=== PATIENT | female | born 1930 | race Caucasian/White ===

== ENCOUNTER 2016-12-01 20:45 | Inpatient (IN) | payer MEDICARE, BC ==
[~2016-12-01] VITALS: Ht 152.4 cm; Wt 61.5 kg
[~2016-12-01 20:45] MED LIST: CARV12.52 PO; ENAL2.5T PO; FERR65TA PO; FURO20TA PO; GABA300C5 PO; LIPI10TA PO; PANT40TA3 PO
[2016-12-01 20:56] VITALS: BP 194/91; PULSE 104; RESP 40; TEMP 98.3; O2SAT 89
[2016-12-01 21:12] VITALS: RESP 16; O2SAT 98
--- NOTE | 2016-12-01 21:13 | PD ---
HPI Chief Complaint: Respiratory Symptoms Time Seen by Provider: 21:10 Travel History International Travel<30 days: No Contact w/Intl Traveler<30days: No Traveled to known affect area: No History of Present Illness HPI 86-year-old elderly female presents to the emergency department her daughter for evaluation of worsening weakness over the past 4 days. Patient states that over the past 4 days, she has had decreased appetite, worsening weakness, vomiting. She also reports cough and congestion. She states is been ongoing for approximately 2 months. She has been on 2 Z-Paks and is on nebulizers. Her daughter states that she has been diagnosed with COPD. The patient denies any fevers or chills. No abdominal pain. She denies any diarrhea. She states that she has not had a bowel movement in 3-4 days. Patient denies any blood in her stool or black and tarry stools. Patient states she is only urinating twice a day and is concerned of dehydration. PFSH Past Medical History Arthritis: No Blood Disorders: No Anxiety: No Depression: No Heart Rhythm Problems: No Cancer: No Cardiovascular Problems: Yes (HTN) High Cholesterol: Yes Chemotherapy: No Congestive Heart Failure: Yes (DIAGNOSED ON LAST ADMISSION) Cerebrovascular Accident: Yes (x3) Diabetes: No Diminished Hearing: No Endocrine: No Gastrointestinal Disorders: No Genitourinary: Yes Headaches: No Hypertension: Yes Immune Disorder: No Implanted Vascular Access Dvce: No Kidney Stones: Yes (LAST ADMISSION 2 STONES NOTED) Musculoskeletal: Yes (RIGHT HIP FRX REPAIR- PLATE IN PLACE) Neurologic: Yes Psychiatric: No Reproductive: No Respiratory: Yes (COPD) Immunizations Current: No Migraines: No Radiation Therapy: No Seizures: No Thyroid Disease: Yes Menopausal: Yes : 4 Para: 4 Past Surgical History Abdominal Surgery: No Cardiac Surgery: No Ear Surgery: No Endocrine Surgery: Yes (PARATHYROID REMOVED) Eye Surgery: Yes (cataracts) Genitourinary Surgery: No Gynecologic Surgery: No Neurologic Surgery: No Oral Surgery: No Pacemaker: No Thoracic Surgery: No Other Surgery: Yes (CAROTIDECTOMY - POLYPS REMOVED) Social History Alcohol Use: No Tobacco Use: Yes (quit 10 yrs ago, but will still have one) Substance Use: No Allergies-Medications (Allergen,Severity, Reaction): Coded Allergies: Penicillin (Unverified Allergy, Mild, Rash, 12/01/16) STATES HAD PCN WHEN SHE WAS IN HER 20'S OR 30'S AND HAD A BLOTCHY RASH Reported Meds & Prescriptions Reported Meds & Active Scripts Active Reported Furosemide 20 Mg Tab 20 Mg PO DAILY Carvedilol 12.5 Mg Tab 12.5 Mg PO DAILY Pantoprazole (Pantoprazole Sodium) 40 Mg Tab 40 Mg PO BID Feosol (Ferrous Sulfate) 65 Mg Tab 65 Mg PO BIDPC Enalapril (Enalapril Maleate) 2.5 Mg Tab 5 Mg PO BID Lipitor (Atorvastatin Calcium) 10 Mg Tab 80 Mg PO HS Gabapentin 300 Mg Cap 300 Mg PO TID Review of Systems Except as stated in HPI: all other systems reviewed are Neg Physical Exam Narrative GENERAL: Well-nourished, well-developed elderly female patient, afebrile. SKIN: Focused skin assessment warm/dry. HEAD: Normocephalic. Atraumatic. EYES: No scleral icterus. No injection or drainage. NECK: Supple, trachea midline. No JVD or lymphadenopathy. CARDIOVASCULAR: Regular rate and rhythm without murmurs, gallops, or rubs. Bilateral radial and pedal pulses 2+. RESPIRATORY: Breath sounds equal bilaterally. No accessory muscle use. Lungs sounds with inspiratory and expiratory wheezes noted throughout. GASTROINTESTINAL: Abdomen soft, non-tender, nondistended. MUSCULOSKELETAL: No cyanosis, or edema. BACK: Nontender without obvious deformity. No CVA tenderness. Data Data Last Documented VS Vital Signs Date Time Temp Pulse Resp B/P Pulse Ox O2 Delivery O2 Flow Rate FiO2 12/01/16 22:00 95 Nasal Cannula 2.00 12/01/16 21:12 16 12/01/16 20:56 98.3 104 194/91 Orders Complete Blood Count With Diff (12/01/16 21:05) Comprehensive Metabolic Panel (12/01/16 21:05) B-Type Natriuretic Peptide (12/01/16 21:05) Act Partial Throm Time (Ptt) (12/01/16 21:05) Prothrombin Time / Inr (Pt) (12/01/16 21:05) Ckmb (Isoenzyme) Profile (12/01/16 21:05) Troponin I (12/01/16 21:05) Urinalysis - C+S If Indicated (12/01/16 21:05) Blood Culture (12/01/16 21:05) Iv Access Insert/Monitor (12/01/16 21:05) Electrocardiogram (12/01/16 21:05) Ecg Monitoring (12/01/16 21:05) Oximetry (12/01/16 21:05) Oxygen Administration (12/01/16 21:05) Chest, Single Ap (12/01/16 21:05) Sodium Chloride 0.9% Flush (Ns Flush) (12/01/16 21:15) Methylprednisolone So Succ Inj (Solumedr (12/01/16 21:15) Albuterol-Ipratropium Neb (Duoneb Neb) (12/01/16 21:15) Abdomen, Flat & Upright (12/01/16 ) Magnesium (Mg) (12/01/16 21:05) Sodium Chlorid 0.9% 500 Ml Inj (Ns 500 M (12/01/16 21:15) Cath For Specimen (12/01/16 21:05) Lactic Acid Sepsis Protocol (12/01/16 21:13) Levofloxacin 750 Mg Premix Inj (Levaquin (12/01/16 22:15) Ct Pulmonary Angiogram (12/01/16 ) Sodium Chlorid 0.9% 500 Ml Inj (Ns 500 M (12/01/16 22:45) Labs Laboratory Tests Test 12/01/16 12/01/16 21:35 22:15 White Blood Count 7.5 TH/MM3 Red Blood Count 4.29 MIL/MM3 Hemoglobin 13.4 GM/DL Hematocrit 40.6 % Mean Corpuscular Volume 94.7 FL Mean Corpuscular Hemoglobin 31.4 PG Mean Corpuscular Hemoglobin 33.1 % Concent Red Cell Distribution Width 13.6 % Platelet Count 136 TH/MM3 Mean Platelet Volume 10.0 FL Neutrophils (%) (Auto) 76.3 % Lymphocytes (%) (Auto) 10.9 % Monocytes (%) (Auto) 11.1 % Eosinophils (%) (Auto) 1.3 % Basophils (%) (Auto) 0.4 % Neutrophils # (Auto) 5.7 TH/MM3 Lymphocytes # (Auto) 0.8 TH/MM3 Monocytes # (Auto) 0.8 TH/MM3 Eosinophils # (Auto) 0.1 TH/MM3 Basophils # (Auto) 0.0 TH/MM3 CBC Comment DIFF FINAL Differential Comment Sodium Level 133 MEQ/L Potassium Level 3.8 MEQ/L Chloride Level 97 MEQ/L Carbon Dioxide Level 26.2 MEQ/L Anion Gap 10 MEQ/L Blood Urea Nitrogen 14 MG/DL Creatinine 1.33 MG/DL Estimat Glomerular Filtration 38 ML/MIN Rate Random Glucose 175 MG/DL Lactic Acid Level 2.2 mmol/L Calcium Level 9.4 MG/DL Magnesium Level 1.4 MG/DL Total Bilirubin 0.4 MG/DL Aspartate Amino Transf 22 U/L (AST/SGOT) Alanine Aminotransferase 18 U/L (ALT/SGPT) Alkaline Phosphatase 72 U/L Total Creatine Kinase 48 U/L Troponin I LESS THAN 0.02 NG/ML B-Type Natriuretic Peptide 60 PG/ML Total Protein 6.8 GM/DL Albumin 3.0 GM/DL Urine Color YELLOW Urine Turbidity CLEAR Urine pH 8.0 Urine Specific [place] 1.014 Urine Protein 30 mg/dL Urine Glucose (UA) NEG mg/dL Urine Ketones NEG mg/dL Urine Occult Blood NEG Urine Nitrite NEG Urine Bilirubin NEG Urine Urobilinogen LESS THAN 2.0 MG/DL Urine Leukocyte Esterase NEG Urine RBC 2 /hpf Urine WBC 1 /hpf Urine Squamous Epithelial 2 /hpf Cells Urine Transitional Epithelial 1 /hpf Cells Microscopic Urinalysis Comment CULT NOT INDICATED MDM Medical Decision Making Medical Screen Exam Complete: Yes Emergency Medical Condition: Yes Medical Record Reviewed: Yes Interpretation(s) chest x-ray - CONCLUSION: 1. Significant increase in the size of left mid lung mass when compared to 2014 , now measuring 2.7 cm. This is suspicious for malignancy. 2. Linear atelectasis or infiltrate at the left lung base. abdomen x-ray - CONCLUSION: No dilated loops of small or large bowel. Differential Diagnosis Pneumonia versus COPD exacerbation versus URI versus electrolyte abnormality versus ACS versus anemia versus PE Narrative Course 86-year-old female presents to the emergency department for evaluation of weakness, shortness breath, vomiting. EKG, CBC, CMP, BNP, CK, troponin, lactic acid, magnesium, PTT, PT/INR , blood cultures 2 are ordered and pending. X- ray of the abdomen, chest are ordered and pending. Patient is given DuoNeb 3, Solu-Medrol 125 mg IV, normal saline 500 bolus. EKG shows sinus rhythm, heart rate 91, no acute ST changes. CBC shows normal WBC of 7.5, neutrophilia of 76.3. CMP shows creatinine 1.33, glucose 175. BNP is 60. CK is 48. Troponin is less than 0.02. Lactic acid is 2.2. Magnesium is 1.4. Coags are pending. UA is negative for acute infection. Abdomen x-ray shows no dilated loops of small or large bowel.. Chest x-ray shows significant increase in the size of left mid lung mass when compared to 2014, now measuring 2.7 cm. This is suspicious for malignancy; linear atelectasis or infiltrate at the left lung base. Patient is started on Levaquin [address] PA is ordered and pending. Patient is given 2nd [address] Perry will resume care and disposition of patient. Theresa Prado Dec 01, 2016 21:13
[2016-12-01] MEDS ORDERED: methylPREDNISolone SOD SUCC 125 MG/2 ML VIAL IVP ONE (21:15)
[2016-12-01] MEDS ORDERED: SODIUM CHLORIDE 0.9% FLUSH 10 ML FLUSH IVF PRN (21:15)
[2016-12-01] MEDS ORDERED: SODIUM CHLORID 0.9% 500 ML INJ 500 ML IV ONE ×2 (21:15→22:45)
[2016-12-01] MEDS: RESP: ALBUTEROL 2.5 MG/IPRATROPIUM 0.5 MG NEB (SCH) INH ×2 (21:56→21:57)
--- NOTE | 2016-12-01 21:59 | RADRPT ---
EXAM DATE/TIME: 12/01/2016 21:17 [facility] COMPARISON: CT THORAX W/O CONTRAST, January 21, 2014, 14:06. CHEST SINGLE AP, January 27, 2014, 8:27. INDICATIONS : Shortness of breath. MEDICAL HISTORY : Congestive heart failure. Hypercholesterolemia. Renal calculi. Thyroid disease. SURGICAL HISTORY : Multiple polyps removed. Right hip fracture repair with plate. Paratyroidectomy. ENCOUNTER: Initial ACUITY: 4 - 6 days PAIN SCORE: 0/10 LOCATION: Bilateral chest FINDINGS: There is a 2.7 cm mass in the left medial midlung, noncalcified. Prior chest x-ray and December 2013 d emonstrated a nodule in the medial left lung measuring 1.2 cm. There is some linear atelectasis or i nfiltrate at the left base obscuring a portion of the lateral left hemidiaphragm. The right lung is clear. Moderate tortuosity descending thoracic aorta. The heart is upper limits normal size. CONCLUSION: 1. Significant increase in the size of left mid lung mass when compared to 2013, now measuring 2.7 cm . This is suspicious for malignancy. 2. Linear atelectasis or infiltrate at the left lung base. Baljit Miller MD on December 01, 2016 at 21:53 Board Certified Radiologist. This report was verified electronically.
[2016-12-01 22:00] VITALS: O2SAT 95
--- NOTE | 2016-12-01 22:08 | RADRPT ---
EXAM DATE/TIME: 12/01/2016 21:19 [facility] COMPARISON: CT ABDOMEN & PELVIS W CONTRAST, April 26, 2016, 5:24. INDICATIONS : Obstruction. Last bowel movement four days ago. MEDICAL HISTORY : Congestive heart failure. Hypercholesterolemia. Renal calculi. Thyroid disease. SURGICAL HISTORY : Multiple polyps removed. Right hip fracture repair with plate. Paratyroidectomy. ENCOUNTER: Initial ACUITY: 4 - 6 days PAIN SCORE: 5/10 LOCATION: Bilateral abdomen. FINDINGS: Diffuse osteopenia. There are 2 prominent calcifications in the left flank, the larger measuring 3.4 cm; these correlate with nonobstructing and lamellated left renal stones. There is scarring or infi ltrate in the left lower lung causing obscuration of a portion of the central left hemidiaphragm. No dilated loops of small or large bowel. Vascular calcification in the pelvis. Intramedullary mandy an d intercalated pin proximal right femur. Left medial lung mass. CONCLUSION: No dilated loops of small or large bowel. Baljit Miller MD on December 01, 2016 at 22:03 Board Certified Radiologist. This report was verified electronically.
[2016-12-01 22:12] LABS: AUTOMATED NEUTROPHIL # 5.7 TH/MM3 (1.8-7.7); BASOPHIL % 0.4 % (0.0-2.0); EOSINOPHIL # 0.1 TH/MM3 (0-0.4); EOSINOPHIL % 1.3 % (0.0-4.0); HEMATOCRIT 40.6 % (35.0-46.0); HEMO FLAGS DIFF FINAL; LYMPH % 10.9 % (9.0-44.0); LYMPHOCYTE # 0.8 TH/MM3 (1.0-4.8); MEAN CELL VOLUME 94.7 FL (80.0-100.0); MEAN CORPUSCULAR HEMOGLOBIN 31.4 PG (27.0-34.0); MEAN CORPUSCULAR HGB CONC 33.1 % (32.0-36.0); MONO % 11.1 % (0.0-8.0); NEUT % 76.3 % (16.0-70.0); PLATELET COUNT 136 TH/MM3 (150-450); RED BLOOD COUNT 4.29 MIL/MM3 (4.00-5.30); RED CELL DISTRIBUTION WIDTH 13.6 % (11.6-17.2); WHITE BLOOD COUNT 7.5 TH/MM3 (4.0-11.0)
[2016-12-01] MEDS ORDERED: LEVOFLOXACIN 750 MG PREMIX INJ 150 ML IV ONE (22:15)
[2016-12-01 22:23] LABS: ALT (GPT) 18 U/L (10-53); ANION GAP 10 MEQ/L (5-15); AST (GOT) 22 U/L (15-37); BICARBONATE 26.2 MEQ/L (21.0-32.0); BLOOD UREA NITROGEN 14 MG/DL (7-18); CHLORIDE 97 MEQ/L (98-107); GLOMERULAR FILTRATION RATE 38 ML/MIN (>89); MAGNESIUM 1.4 MG/DL (1.5-2.5); POTASSIUM 3.8 MEQ/L (3.5-5.1); SODIUM (NA) 133 MEQ/L (136-145)
[2016-12-01 22:28] LABS: ALKALINE PHOSPHATASE 72 U/L (45-117); TOTAL BILIRUBIN ADULT 0.4 MG/DL (0.2-1.0)
[2016-12-01 22:31] LABS: CREATINE KINASE 48 U/L (26-192)
[2016-12-01 22:33] LABS: BLOOD, URINE NEG (NEG); COMMENT (UR) CULT NOT INDICATED; CULTURE IF INDICATED CULT NOT INDICATED; GLUCOSE,URINE NEG (NEG); KETONE, URINE NEG (NEG); NITRITE,URINE NEG (NEG); SQUAMOUS EPITHELIAL CELL URINE 2 /hpf (0-5); TRANSITIONAL EPI CELLS, URINE 1 /hpf; URINE COLOR YELLOW (YELLW/STRAW)
[2016-12-01 22:49] LABS: APTT (PATIENT) 29.3 SEC (24.3-30.1); PROTHROMBIN TIME - PATIENT 10.9 SEC (9.8-11.6)
[2016-12-01] MEDS ORDERED: IOHEXOL 350 MG/ML 10 ML VIAL (for RAD DIAG) IV ONE (23:28)
--- NOTE | 2016-12-01 23:50 | RADRPT ---
EXAM DATE/TIME: 12/01/2016 23:23 [facility] COMPARISON: CHEST SINGLE AP, December 01, 2016, 21:17. INDICATIONS : Shortness of breath. IV CONTRAST: 60 cc Omnipaque 350 (iohexol) IV RADIATION DOSE: 13.66 CTDIvol (mGy) MEDICAL HISTORY : Hypertension. Congestive heart failure. Chronic obstructive pulmonary disease.CVA. SURGICAL HISTORY : None. ENCOUNTER: Initial ACUITY: 1 day PAIN SCALE: 0/10 LOCATION: chest TECHNIQUE: Volumetric scanning of the chest was performed using a pulmonary embolism protocol MIP images were re constructed. Using automated exposure control and adjustment of the mA and/or kV according to patien t size, radiation dose was kept as low as reasonably achievable to obtain optimal diagnostic quality images. DICOM format image data is available electronically for review and comparison. FINDINGS: PULMONARY ARTERIES: No filling defects are seen in the pulmonary arteries through the segmental level. LUNGS: There is a small mass in the left lower lobe measuring 3.7 x 3.1 cm. There is also a large central ma ss centered in the left mediastinal region extending into the AP window and inferiorly involving the left hilum encasing the left mainstem bronchus causing narrowing. This also encases portions of the l eft pulmonary artery. This measures approximately 5.9 x 5.3 x 6.6 cm. This does partially encase the aortic arch. There is emphysema. Pneumatocele seen within the right lower lobe anteriorly. There are some scattered densities in the lingula and right middle lobe medially. Coronary artery calcification s. PLEURAE: There is no pleural thickening or pleural effusion. MUSCULOSKELETAL: Within normal limits for patient age. MISCELLANEOUS: The visualized upper abdominal organs demonstrate no acute abnormality. CONCLUSION: 1. Large Central mass in the left mediastinum encasing portions of the left main pulmonary artery and left mainstem bronchus without significant obstruction. Bronchoscopy recommended. 2. Small mass in the left lower lobe measuring 3.7 x 3.2 cm. This is amenable to percutaneous CT-guid ed biopsy if bronchoscopy is not performed. 3. No evidence for pulmonary embolism. 4. Coronary artery calcifications. 5. Scattered parenchymal scarring. Rinku Arenas MD on December 01, 2016 at 23:39 Board Certified Radiologist. This report was verified electronically.
[2016-12-02] VITALS (7 sets, daily range): BP systolic 141–186; BP diastolic 73–95; PULSE 82–100; RESP 16–20; TEMP 96.8–97.8; O2SAT 94–97
[2016-12-02 00:06] LABS: LACTIC ACID GHOST NOT REPORTABLE
[2016-12-02] MEDS ORDERED: BISACODYL 10 MG SUPP RECTAL PRN (00:45)
[2016-12-02] MEDS ORDERED: ONDANSETRON HCL 4 MG/2 ML VIAL IVP PRN (00:45)
[2016-12-02] MEDS ORDERED: MAGNESIUM HYDROXIDE SUSP 30 ML CUP PO PRN (00:45)
[2016-12-02] MEDS ORDERED: SODIUM CHLORIDE 0.9% FLUSH 10 ML FLUSH IV FLUSH PRN (00:45)
[2016-12-02] MEDS ORDERED: SENNOSIDES 8.6 MG TAB PO PRN (00:45)
[2016-12-02] MEDS ORDERED: NALOXONE HCL 0.4 MG/ML AMP IV PRN (00:45)
[2016-12-02] MEDS ORDERED: LACTULOSE SYRUP 20 GM/30 ML CUP PO PRN (00:45)
--- NOTE | 2016-12-02 00:47 | PD ---
Data Data Last Documented VS Vital Signs Date Time Temp Pulse Resp B/P Pulse Ox O2 Delivery O2 Flow Rate FiO2 12/01/16 22:00 95 Nasal Cannula 2.00 12/01/16 21:12 16 12/01/16 20:56 98.3 104 194/91 Orders Complete Blood Count With Diff (12/01/16 21:05) Comprehensive Metabolic Panel (12/01/16 21:05) B-Type Natriuretic Peptide (12/01/16 21:05) Act Partial Throm Time (Ptt) (12/01/16 21:05) Prothrombin Time / Inr (Pt) (12/01/16 21:05) Ckmb (Isoenzyme) Profile (12/01/16 21:05) Troponin I (12/01/16 21:05) Urinalysis - C+S If Indicated (12/01/16 21:05) Blood Culture (12/01/16 21:05) Iv Access Insert/Monitor (12/01/16 21:05) Electrocardiogram (12/01/16 21:05) Ecg Monitoring (12/01/16 21:05) Oximetry (12/01/16 21:05) Oxygen Administration (12/01/16 21:05) Chest, Single Ap (12/01/16 21:05) Sodium Chloride 0.9% Flush (Ns Flush) (12/01/16 21:15) Methylprednisolone So Succ Inj (Solumedr (12/01/16 21:15) Albuterol-Ipratropium Neb (Duoneb Neb) (12/01/16 21:15) Abdomen, Flat & Upright (12/01/16 ) Magnesium (Mg) (12/01/16 21:05) Sodium Chlorid 0.9% 500 Ml Inj (Ns 500 M (12/01/16 21:15) Cath For Specimen (12/01/16 21:05) Lactic Acid Sepsis Protocol (12/01/16 21:13) Levofloxacin 750 Mg Premix Inj (Levaquin (12/01/16 22:15) Ct Pulmonary Angiogram (12/01/16 ) Sodium Chlorid 0.9% 500 Ml Inj (Ns 500 M (12/01/16 22:45) Iohexol 350 Inj (Omnipaque 350 Inj) (12/01/16 23:28) Labs Laboratory Tests Test 12/01/16 12/01/16 21:35 22:15 White Blood Count 7.5 TH/MM3 Red Blood Count 4.29 MIL/MM3 Hemoglobin 13.4 GM/DL Hematocrit 40.6 % Mean Corpuscular Volume 94.7 FL Mean Corpuscular Hemoglobin 31.4 PG Mean Corpuscular Hemoglobin 33.1 % Concent Red Cell Distribution Width 13.6 % Platelet Count 136 TH/MM3 Mean Platelet Volume 10.0 FL Neutrophils (%) (Auto) 76.3 % Lymphocytes (%) (Auto) 10.9 % Monocytes (%) (Auto) 11.1 % Eosinophils (%) (Auto) 1.3 % Basophils (%) (Auto) 0.4 % Neutrophils # (Auto) 5.7 TH/MM3 Lymphocytes # (Auto) 0.8 TH/MM3 Monocytes # (Auto) 0.8 TH/MM3 Eosinophils # (Auto) 0.1 TH/MM3 Basophils # (Auto) 0.0 TH/MM3 CBC Comment DIFF FINAL Differential Comment Prothrombin Time 10.9 SEC Prothromb Time International 1.0 RATIO Ratio Activated Partial 29.3 SEC Thromboplast Time Sodium Level 133 MEQ/L Potassium Level 3.8 MEQ/L Chloride Level 97 MEQ/L Carbon Dioxide Level 26.2 MEQ/L Anion Gap 10 MEQ/L Blood Urea Nitrogen 14 MG/DL Creatinine 1.33 MG/DL Estimat Glomerular Filtration 38 ML/MIN Rate Random Glucose 175 MG/DL Calcium Level 9.4 MG/DL Magnesium Level 1.4 MG/DL Total Bilirubin 0.4 MG/DL Aspartate Amino Transf 22 U/L (AST/SGOT) Alanine Aminotransferase 18 U/L (ALT/SGPT) Alkaline Phosphatase 72 U/L Total Creatine Kinase 48 U/L Troponin I LESS THAN 0.02 NG/ML B-Type Natriuretic Peptide 60 PG/ML Total Protein 6.8 GM/DL Albumin 3.0 GM/DL Lactic Acid Level 2.2 mmol/L Urine Color YELLOW Urine Turbidity CLEAR Urine pH 8.0 Urine Specific [place] 1.014 Urine Protein 30 mg/dL Urine Glucose (UA) NEG mg/dL Urine Ketones NEG mg/dL Urine Occult Blood NEG Urine Nitrite NEG Urine Bilirubin NEG Urine Urobilinogen LESS THAN 2.0 MG/DL Urine Leukocyte Esterase NEG Urine RBC 2 /hpf Urine WBC 1 /hpf Urine Squamous Epithelial 2 /hpf Cells Urine Transitional Epithelial 1 /hpf Cells Microscopic Urinalysis Comment CULT NOT INDICATED MDM Supervised Visit with MICAH: Yes Narrative Course I, Dr. Perry, have reviewed the advance practice practitioner's documentation and am in agreement, met with the patient face to face, made the diagnosis, and the medical decision making was done by me. See her note for further details. Briefly this is an 86-year-old female with history of COPD who is here for evaluation of shortness of breath and generalized weakness. Patient has been on 2 courses of azithromycin recently without improvement in shortness of breath. Initial vital signs showed a pulse ox of 89% on room air. CBC shows a platelet count of 136 which is around her baseline, otherwise essentially unremarkable. CMP shows slight renal insufficiency with a creatinine 1.33, GFR 38, otherwise essentially unremarkable. Lactic acid is 2.2. BNP is 60. Cardiac enzymes are negative. CT pulmonary angiogram: CONCLUSION: 1. Large Central mass in the left mediastinum encasing portions of the left main pulmonary artery and left mainstem bronchus without significant obstruction. Bronchoscopy recommended. 2. Small mass in the left lower lobe measuring 3.7 x 3.2 cm. This is amenable to percutaneous CT-guided biopsy if bronchoscopy is not performed. 3. No evidence for pulmonary embolism. 4. Coronary artery calcifications. 5. Scattered parenchymal scarring. Patient and the patient's daughter were made aware of all findings. She is resting comfortably. She is still hypoxic on room air with a sat of 89% and still has slight bilateral inspiratory and expiratory wheezes. She was given a dose of Levaquin. As far as her lung mass, she is aware that she may have had a lung mass on an x-ray 2 years ago. She was advised to follow-up with this, however the patient has chosen not to. Case was discussed with the patient's primary care physician Dr. Javier who will admit the patient to his service for COPD exacerbation, lung mass, hypoxia. Diagnosis Primary Impression: COPD exacerbation Additional Impressions: Lung mass Hypoxia Admitting Information Admitting Physician Requests: Derek Lopez MD Dec 02, 2016 00:47
[2016-12-02] MEDS: ZOLPIDEM TARTRATE 5 MG TAB PO PRN ×2 (02:10→22:09)
[2016-12-02] MEDS: DOCUSATE SODIUM 50 MG/SENNA 8.6 MG TAB PO SCH ×2 (09:00→21:00)
[2016-12-02] MEDS: SODIUM CHLORIDE 0.9% FLUSH 10 ML FLUSH IV FLUSH SCH ×2 (09:20→21:07)
--- NOTE | 2016-12-02 12:02 | HHI.HP ---
History of Present Illness Service primary care Primary Care Physician Isaac Javier, DO Admission Diagnosis COPD exacerbation, dyspnea, hypoxia PULMONARY MASS Diagnoses: (1) COPD exacerbation (2) Lung mass History of Present Illness pt is along term smoker she still smokes 2-4 cigarettes daily although her does not know this she has been aware of the presence of a pulmonary mass for the past 2 years but has refused any work up she presented to ED last pm with sob ct shows two masses to be present after lengthy discussion she now is agreeable to obtaining a biopsy and diagnosis Review of Systems Constitutional: COMPLAINS OF: Fatigue Respiratory: COMPLAINS OF: Cough, Shortness of breath Past Family Social History Allergies: Coded Allergies: Penicillin (Unverified Allergy, Mild, Rash, 12/01/16) STATES HAD PCN WHEN SHE WAS IN HER 20'S OR 30'S AND HAD A BLOTCHY RASH Past Medical History copd thyroid nodule Past Surgical History thyroid biopsy and orif of her hip Reported Medications Reported Meds & Active Scripts Active Reported Furosemide 20 Mg Tab 20 Mg PO DAILY Carvedilol 12.5 Mg Tab 12.5 Mg PO DAILY Pantoprazole (Pantoprazole Sodium) 40 Mg Tab 40 Mg PO BID Enalapril (Enalapril Maleate) 2.5 Mg Tab 5 Mg PO BID Lipitor (Atorvastatin Calcium) 10 Mg Tab 80 Mg PO HS Gabapentin 300 Mg Cap 300 Mg PO TID Active Ordered Medications Inpatient Medications Albuterol/ Ipratropium 1 ampule 1 ampule Q15M INH Last administered on 21:57; Start 12/01/16 at 21:15; Stop 12/01/16 at 21:46; Status DC Bisacodyl (Dulcolax Supp) 10 mg DAILY PRN RECTAL SEVERE CONSITIPATION; Start at 00:45 Lactulose (Lactulose Liq) 30 ml DAILY PRN PO SEVERE CONSITIPATION; Start at 00:45 Levofloxacin/ Dextrose 150 ml @ 100 mls/hr ONCE ONCE IV Last administered on 12/01/16 22:47; Start 12/01/16 at 22:15; Stop 12/01/16 at 23:44; Status DC Magnesium Hydroxide (Milk Of Magnesia Liq) 30 ml Q12H PRN PO MILD - MODERATE CONSTIPATION Last administered on 12/02/16 09:19; Start 12/02/16 at 00:45 Methylprednisolone Sodium Succinate (SoluMEDROL INJ) 125 mg ONCE ONCE IVP Last administered on 12/01/16 21:48; Start 12/01/16 at 21:15; Stop 12/01/16 at 21: 16; Status DC Naloxone HCl (Narcan Inj) 0.4 mg UNSCH PRN IV SEE LABEL COMMENTS; Start at 00:45 Ondansetron HCl (Zofran Inj) 4 mg Q6H PRN IVP NAUSEA OR VOMITING; Start at 00:45 Senna/Docusate Sodium (Rebekah-Colace) 1 tab BID PO Last administered on 12/02/16 09:00; Start 12/02/16 at 09:00 Sennosides (Senokot) 17.2 mg Q12H PRN PO MODERATE - SEVERE CONSTIPATION; Start 12/02/16 at 00:45 Sodium Chloride (NS 500 ml Inj) 500 ml @ 500 mls/hr BOLUS ONCE IV Last administered on 12/01/16 22:47; Start 12/01/16 at 22:45; Stop 12/01/16 at 23:44; Status DC Sodium Chloride (NS Flush) 2 ml BID IV FLUSH Last administered on 12/02/16 09: 20; Start 12/02/16 at 09:00 Zolpidem Tartrate (Ambien) 5 mg HS PRN PO INSOMNIA Last administered on 02:10; Start 12/02/16 at 00:45 Family History father had brain cancer mother had breast cancer Social History continues to smoke daily drinker 2 shots /day Physical Exam Vital Signs Vital Signs Date Time Temp Pulse Resp B/P Pulse Ox O2 Delivery O2 Flow Rate FiO2 12/02/16 08:00 97.7 95 16 161/95 95 12/02/16 02:07 97.8 100 20 141/73 94 12/01/16 22:00 95 Nasal Cannula 2.00 12/01/16 21:12 98 Room Air 12/01/16 21:12 16 98 Room Air 12/01/16 21:10 16 100 Room Air 12/01/16 20:56 98.3 104 40 194/91 89 Physical Exam GENERAL: This is a well-nourished, well-developed patient, in no apparent distress. SKIN: No rashes, ecchymoses or lesions. Cool and dry. HEAD: Atraumatic. Normocephalic. No temporal or scalp tenderness. EYES: Pupils equal round and reactive. Extraocular motions intact. No scleral icterus. No injection or drainage. ENT: Nose without bleeding, purulent drainage or septal hematoma. Throat without erythema, tonsillar hypertrophy or exudate. Uvula midline. Airway patent. NECK: Trachea midline. No JVD or lymphadenopathy. Supple, nontender, no meningeal signs. CARDIOVASCULAR: Regular rate and rhythm without murmurs, gallops, or rubs. RESPIRATORY: diminished breath sounds throughout few rhonchi present GASTROINTESTINAL: Abdomen soft, non-tender,obese nondistended. No hepato- splenomegaly, or palpable masses. No guarding. MUSCULOSKELETAL: Extremities without clubbing, cyanosis, or edema. No joint tenderness, effusion, or edema noted. No calf tenderness. Negative Homans sign bilaterally. NEUROLOGICAL: Awake and alert. Cranial nerves II through XII intact. Motor and sensory grossly within normal limits. Five out of 5 muscle strength in all muscle groups. Normal speech. Laboratory Reported Meds & Active Scripts Active Reported Furosemide 20 Mg Tab 20 Mg PO DAILY Carvedilol 12.5 Mg Tab 12.5 Mg PO DAILY Pantoprazole (Pantoprazole Sodium) 40 Mg Tab 40 Mg PO BID Enalapril (Enalapril Maleate) 2.5 Mg Tab 5 Mg PO BID Lipitor (Atorvastatin Calcium) 10 Mg Tab 80 Mg PO HS Gabapentin 300 Mg Cap 300 Mg PO TID Laboratory Tests Test 12/01/16 12/01/16 12/02/16 21:35 22:15 01:12 White Blood Count 7.5 Red Blood Count 4.29 Hemoglobin 13.4 Hematocrit 40.6 Mean Corpuscular Volume 94.7 Mean Corpuscular Hemoglobin 31.4 Mean Corpuscular Hemoglobin 33.1 Concent Red Cell Distribution Width 13.6 Platelet Count 136 Mean Platelet Volume 10.0 Neutrophils (%) (Auto) 76.3 Lymphocytes (%) (Auto) 10.9 Monocytes (%) (Auto) 11.1 Eosinophils (%) (Auto) 1.3 Basophils (%) (Auto) 0.4 Neutrophils # (Auto) 5.7 Lymphocytes # (Auto) 0.8 Monocytes # (Auto) 0.8 Eosinophils # (Auto) 0.1 Basophils # (Auto) 0.0 CBC Comment DIFF FINAL Differential Comment Prothrombin Time 10.9 Prothromb Time International 1.0 Ratio Activated Partial 29.3 Thromboplast Time Sodium Level 133 Potassium Level 3.8 Chloride Level 97 Carbon Dioxide Level 26.2 Anion Gap 10 Blood Urea Nitrogen 14 Creatinine 1.33 Estimat Glomerular Filtration 38 Rate Random Glucose 175 Calcium Level 9.4 Magnesium Level 1.4 Total Bilirubin 0.4 Aspartate Amino Transf 22 (AST/SGOT) Alanine Aminotransferase 18 (ALT/SGPT) Alkaline Phosphatase 72 Total Creatine Kinase 48 Troponin I LESS THAN 0.02 B-Type Natriuretic Peptide 60 Total Protein 6.8 Albumin 3.0 Lactic Acid Level 2.2 1.4 Urine Color YELLOW Urine Turbidity CLEAR Urine pH 8.0 Urine Specific [place] 1.014 Urine Protein 30 Urine Glucose (UA) NEG Urine Ketones NEG Urine Occult Blood NEG Urine Nitrite NEG Urine Bilirubin NEG Urine Urobilinogen LESS THAN 2.0 Urine Leukocyte Esterase NEG Urine RBC 2 Urine WBC 1 Urine Squamous Epithelial 2 Cells Urine Transitional Epithelial 1 Cells Microscopic Urinalysis Comment CULT NOT INDICATED Date/Time Procedure Status Source Growth 12/01/16 21:35 Aerobic Blood Culture - Preliminary Resulted Blood Peripheral NO GROWTH IN 1 DAY 12/01/16 21:35 Anaerobic Blood Culture - Preliminary Resulted Blood Peripheral NO GROWTH IN 1 DAY Result Diagram: 12/01/16213412/01/162134 Imaging Last 24 hours Impressions Chest X-Ray 12/01/162104 Signed Impressions: Service Date/Time: Thursday, December 01, 2016 21:17 - CONCLUSION: 1. Significant increase in the size of left mid lung mass when compared to 2013, now measuring 2.7 cm. This is suspicious for malignancy. 2. Linear atelectasis or infiltrate at the left lung base. Baljit Miller MD Course feeling better now will consent to biopsy and discussion with oncology Assessment and Plan Problem List: (1) Lung mass Status: Acute Plan: pulmonology consult possible bronch with biopsy oncology consulted (2) COPD exacerbation Status: Acute Plan: nebulizers pulmonology consult Discussed Condition With patient and family Discharge Planning [place] Isaac Javier DO Dec 02, 2016 12:02
--- NOTE | 2016-12-02 13:15 | EKG ---
Date Performed: 12/01/2016 Time Performed: 22:36:22 PTAGE: 86 years EKG: Sinus rhythm NORMAL ECG NO PREVIOUS TRACING DOCTOR: Geovanni Mahmood Interpretating Date/Time 12/02/2016 13:11:53
--- NOTE | 2016-12-02 15:10 | MB ---
cc: LIOR LUZ DATE OF CONSULTATION 12/02/[address] Javier REASON FOR CONSULTATION Evaluation for lung mass. HISTORY OF PRESENT ILLNESS Mrs. Nation is a pleasant 86-year-old female with history of COPD. She came to the hospital with worsening of her shortness of breath and also complaining of feeling shakiness. She also has difficulty swallowing. She has lost some weight. No hemoptysis. No DVT or pulmonary embolism. The patient was told that she has a lung mass in 2013. It was in the left lower lobe. She was advised for biopsy and she did not agree for the biopsy at that time. She did have an endoscopy for GI bleed in the past for AVM. The patient was admitted in the hospital. She had a CTA of the chest done. It shows that she has a large central mass in the left mediastinum encasing the portion of the left main pulmonary artery and left mainstem bronchus. She also has a 3.7 x 3.2 cm left lower lobe mass. Her CBC showed a WBC count of 7.5, hemoglobin 13.4, hematocrit 40.6, MCV 94, platelet count 136, sodium 133, potassium 3.8, chloride 97, CO2 26, BUN 14, creatinine 1.33. Her INR is 1.0. PAST MEDICAL HISTORY Past medical history is significant for history of COPD, hypertension, lung mass, TIA three times, history of GI bleed and AVM. MEDICATIONS She is currently takin. Enalapril 5 milligrams. 2. Coreg 6.25 milligrams twice a day. 3. Albuterol/Atrovent nebulizer treatment. 4. Zolpidem 5 milligrams at nighttime. 5. Lactulose 30 mL daily. ALLERGIES SHE IS ALLERGIC TO PENICILLIN. SOCIAL HISTORY She is for 66 years. 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 She has a long history of smoking, continues to smoke a few cigarettes a day. FAMILY HISTORY She lives with her daughter. REVIEW OF SYSTEMS She has lost a few pounds of weight, has difficulty swallowing. No headache or dizziness. No hemoptysis. Feels weak and shaky, has dry cough. PHYSICAL EXAMINATION GENERAL: Elderly female mild short of breath not in acute distress. VITAL SIGNS: Blood pressure 161/95, heart rate 95, respirations 16, temperature 97.7. HEENT: Examination pupils are equal and reactive ilght. Oral mucosa, nasal mucosa normal. NECK: Supple. JVP not raised. CHEST: Equal entry bilaterally. She has few rhonchi. CARDIOVASCULAR: S1-S2 normal. ABDOMEN: Soft, nondistended. Bowel sounds present. EXTREMITIES: No edema. IMPRESSION 1. Large lung mass encasing the left main stem bronchus and pulmonary artery. 2. Left lower lobe mass 3.5 cm which has increased in size. It was seen 2 years ago and it is bigger now. 3. COPD. 4. Nicotine use. 5. History of TIA. PLAN I discussed with the patient and her daughter at the bedside and also with Dr. Javier and she agrees to have a CT-guided biopsy done. If the biopsy is positive then would consider chemotherapy, radiation for which she may not be a candidate for any surgery because of the extension of the mass in the mediastinum. Will continue aerosol treatment. Further treatment depends on the course in the hospital. Thank you Dr. Javier for this consultation. MD IRMA Lopez/ALMITA /12:47 PM /2:58 PM MAKAYLA
[2016-12-02] MEDS: RESP: ALBUTEROL 2.5 MG/IPRATROPIUM 0.5 MG NEB (SCH) NEB ×2 (15:33→19:28)
[2016-12-02] MEDS ORDERED: ENALAPRILAT 2.5 MG/2 ML VIAL IV PUSH PRN (16:00)
[2016-12-02 16:32] LABS: AUTOMATED NEUTROPHIL # 5.9 TH/MM3 (1.8-7.7); BASOPHIL % 0.3 % (0.0-2.0); EOSINOPHIL % 0.1 % (0.0-4.0); HEMATOCRIT 40.9 % (35.0-46.0); HEMO FLAGS DIFF FINAL; LYMPH % 12.8 % (9.0-44.0); MEAN CELL VOLUME 94.1 FL (80.0-100.0); MEAN CORPUSCULAR HEMOGLOBIN 31.4 PG (27.0-34.0); MEAN CORPUSCULAR HGB CONC 33.4 % (32.0-36.0); MONO % 10.7 % (0.0-8.0); NEUT % 76.1 % (16.0-70.0); PLATELET COUNT 145 TH/MM3 (150-450); RED BLOOD COUNT 4.35 MIL/MM3 (4.00-5.30); RED CELL DISTRIBUTION WIDTH 13.7 % (11.6-17.2); WHITE BLOOD COUNT 7.8 TH/MM3 (4.0-11.0)
[2016-12-02 16:44] LABS: APTT (PATIENT) 29.4 SEC (24.3-30.1); PROTHROMBIN TIME - PATIENT 11.2 SEC (9.8-11.6)
--- NOTE | 2016-12-02 19:23 | MB ---
cc: PEPE STARR DATE OF CONSULTATION 12/02/16 REASON FOR CONSULTATION Lung mass in an 86-year-old female. PATIENT PROFILE The patient is an 86-year white female. She has been for 66 years. She has four children. She has one son and two daughters who are living and a daughter who of ovarian cancer. The patient was born in [place], [place]. She has lived in [place] for the past 30 years. She is retired. She had owned a travel agency. Her was a draftsman. She states that she stopped smoking 10 years ago and previously smoked a pack of cigarettes per day for 55 years. One of her family members tells me that she still smokes three or four cigarettes a day. She does not drink alcohol. HISTORY OF PRESENT ILLNESS The current history is obtained by speaking to the patient and her two daughters. Her was present, but does not have a very good recollection for events. In approximately December 2013 the family indicates that she had a chest x-ray which showed a mass in the left lung. She was told that she would require further evaluation and possibly a biopsy. She did not pursue this and when I ask her why she tells me that she was afraid. She then did well until March of 2016 when she developed weakness, poor appetite and weight loss. She moved in with her daughter and improved for several months. Approximately 3 months ago she became ill again with increasing weakness, fatigue, a weight loss of 4 or 5 pounds per month, worsening shortness of breath and cough. On several occasions she was given Zithromax without improvement. Her condition continued to worsen and she was brought to the emergency room by her daughter due to the acute deterioration. IMAGING STUDIES On 12/02/2015 consisted of the following: A chest AP showed a 2 cm mass in the left medial mid lung. This states, "Significant increase in the size of the left mid lung mass when compared to 2013, now measuring 2.7 cm. There was linear atelectasis or infiltrate at the left lung base." A CT angiogram of the chest on 12/01/2016 shows no evidence of a pulmonary embolus. There is a mass in the left lower lobe measuring 3.7 x 3.1 cm. There is also a large central mass centered in the left mediastinal region in the AP window and inferiorly involving the left hilum, encasing the left main stem bronchus causing narrowing. This mass also encases portions of the left pulmonary artery. It measures 5.9 x a 5.3 x 6.6 cm. It also partially encases the aortic arch. There is evidence of emphysema. The images of the CT angiogram were reviewed with the patient and family, showing the mass in the mediastinum and hilar area as well as the mass in the left lung. The patient is now scheduled for needle biopsy of the lung lesion tomorrow. PAST SURGICAL HISTORY 1. In approximately 2009 the patient had a fall following a stroke and fractured her right femur and required a mandy. 2. More than 20 years ago she had a partial thyroidectomy. 3. Colonoscopy approximately [address] Howe. 4. Right carotid endarterectomy more than 10 years ago. 5. Cataract surgery. PAST MEDICAL HISTORY 1. In approximately 2009 a stroke with right-sided weakness. fully recovered 2. Hypertension. 3. COPD. 4. Peripheral edema. 5. Peripheral vascular disease. MEDICATIONS PRIOR TO ADMISSION 1. Protonix. 2. Lasix. 3. Vasotec 5 milligrams twice a day. 4. Coreg 12.5 milligrams p.o. b.i.d. 5. She was started on iron pills a month ago. 6. Atorvastatin. ALLERGIES PENICILLIN. FAMILY HISTORY Mother age 85 of cancer of the breast. Father at age 85. The patient is an only child. REVIEW OF SYSTEMS CONSTITUTIONAL: Increasing weakness, fatigue, shortness of breath, anorexia and weight loss. EYES: Vision, she has reading glasses. EARS: Hearing is fine. NOSE AND THROAT: Unremarkable. HEART: No chest pain, palpitations. RESPIRATORY: The patient has exertional shortness of breath and cough. No hemoptysis. GI: Approximately 15-pound weight loss, anorexia, and food has loss of taste. : No dysuria, frequency, hematuria. MUSCULOSKELETAL: Chronic lower back pain. The patient is unable to sleep lying supine. For years she has been sleeping in a chair. NEUROLOGIC: No focal weakness other than generalized weakness. LABORATORY FINDINGS Hemoglobin 13.7, white count 7800, platelets 145,000. Lytes, BUN and creatinine notable for creatinine of 1.33, sodium is 133. Liver function tests are normal. Albumin is 3.0. ASSESSMENT The patient is an 86-year-old female. She has a longstanding history of tobacco use and now presents with an enlarging left lung mass and extensive hilar and mediastinal adenopathy. The likelihood that this is a lung cancer is overwhelming. PLAN 1. Lengthy discussions ensued with the patient and her daughters about a diagnosis of lung cancer. Her lung cancer will not be amendable to surgery. I spoke to them about the different treatments for small cell and [id number] lung cancer. I spoke to them about the possibility of using radiation if the disease is limited to the chest. I spoke to them about the rare possibilities that targeted therapy could be used which would be nontoxic. This would be applicable if she has mutations in ALK,EGFR, ROS, etc. The most likely diagnosis is that we are dealing with at minimum stage III lung cancer, probably [id number]. The patient is 86. She is frail. She declined evaluation more than a year ago. She has had O2 sat of 89% on room air. It is not clear to me that she desires treatment or that she would tolerate treatment. This is an individual decision which I cannot make for her. After speaking with the patient and family the following will be done. 1. She will proceed with a needle biopsy of the lung mass. 2. They will discuss among themselves how far they want to pursue this and whether she would be willing to undergo chemotherapy or radiation therapy. If the biopsy is a non-small cell lung cancer I will send the material out for ALK, EGFR, possibly ROS and PDL1 testing as these may lead to treatments which she could tolerate. At the moment she is thinking of returning home and having supportive care with Hospice. Given her age and physical limitations this would be a reasonable approach. A decision will take place over the next several days. She will require further staging if she desires treatment. MD LEONA Hastings/ALMITA /5:56 PM /7:06 PM MAKAYLA
[2016-12-02] MEDS: CARVEDILOL 6.25 MG TAB PO SCH (21:06)
[2016-12-03] VITALS: BP 140/71; PULSE 82; RESP 19; TEMP 96.5; O2SAT 93
[2016-12-03 05:37] VITALS: BP 171/73; PULSE 75; RESP 21; TEMP 96.8; O2SAT 95
[2016-12-03 06:49] LABS: AUTOMATED NEUTROPHIL # 7.2 TH/MM3 (1.8-7.7); BASOPHIL % 0.3 % (0.0-2.0); EOSINOPHIL # 0.1 TH/MM3 (0-0.4); EOSINOPHIL % 0.8 % (0.0-4.0); HEMATOCRIT 39.4 % (35.0-46.0); HEMO FLAGS DIFF FINAL; LYMPH % 13.1 % (9.0-44.0); LYMPHOCYTE # 1.3 TH/MM3 (1.0-4.8); MEAN CELL VOLUME 94.5 FL (80.0-100.0); MEAN CORPUSCULAR HEMOGLOBIN 31.2 PG (27.0-34.0); MONO % 11.3 % (0.0-8.0); NEUT % 74.5 % (16.0-70.0); PLATELET COUNT 139 TH/MM3 (150-450); RED BLOOD COUNT 4.17 MIL/MM3 (4.00-5.30); RED CELL DISTRIBUTION WIDTH 13.6 % (11.6-17.2); WHITE BLOOD COUNT 9.7 TH/MM3 (4.0-11.0)
[2016-12-03 07:14] LABS: ANION GAP 9 MEQ/L (5-15); AST (GOT) 27 U/L (15-37); BICARBONATE 25.5 MEQ/L (21.0-32.0); BLOOD UREA NITROGEN 13 MG/DL (7-18); CHLORIDE 101 MEQ/L (98-107); GLOMERULAR FILTRATION RATE 53 ML/MIN (>89); POTASSIUM 3.6 MEQ/L (3.5-5.1); SODIUM (NA) 135 MEQ/L (136-145)
[2016-12-03 07:15] LABS: ALT (GPT) 17 U/L (10-53)
[2016-12-03 07:18] LABS: ALKALINE PHOSPHATASE 62 U/L (45-117); TOTAL BILIRUBIN ADULT 0.4 MG/DL (0.2-1.0)
[2016-12-03 08:00] VITALS: BP 178/74; PULSE 83; RESP 16; TEMP 96.7; O2SAT 96
[2016-12-03] MEDS: RESP: ALBUTEROL 2.5 MG/IPRATROPIUM 0.5 MG NEB (SCH) NEB ×2 (08:46→13:19)
[2016-12-03 08:48] VITALS: O2SAT 96
[2016-12-03] MEDS ORDERED: TRAZ100T6 PO (08:49)
--- NOTE | 2016-12-03 08:50 | HHI.DCPOC ---
Discharge Care Plan Diagnosis: (1) Lung mass (2) Weakness (3) Hypoxia (4) COPD exacerbation Your Health Problems Are: Shortness of Breath Goals to Promote Your Health * To prevent worsening of your condition and complications * To maintain your health at the optimal level Directions to Meet Your Goals Take your medications as prescribed Follow your dietary instruction Follow activity as directed Keep your appointments as scheduled Take your immunizations and boosters as scheduled If your symptoms worsen call your PCP, if no PCP go to Urgent Care Center or Emergency Room Smoking is Dangerous to Your Health. Avoid second hand smoke Call the 24-hour hour crisis hotline for domestic abuse at Dafne Salcedo Dec 03, 2016 08:50
--- NOTE | 2016-12-03 08:58 | HHI.DS ---
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 Although her does not know this she has been aware of the presence of a pulmonary mass for the past 2 years but has refused any work up. She presented to ED with sob and hypoxia with CT showing two masses to be present. CBC/BMP: 12/03/16 0527 12/03/16 0523 Significant Findings Laboratory Tests Test 12/01/16 12/01/16 12/02/16 12/03/16 21:35 22:15 16:02 05:23 Platelet Count 136 TH/MM3 145 TH/MM3 (150-450) (150-450) Neutrophils (%) (Auto) 76.3 % 76.1 % (16.0-70.0) (16.0-70.0) Monocytes (%) (Auto) 11.1 % 10.7 % (0.0-8.0) (0.0-8.0) Lymphocytes # (Auto) 0.8 TH/MM3 (1.0-4.8) Sodium Level 133 MEQ/L 135 MEQ/L (136-145) (136-145) Chloride Level 97 MEQ/L (98-107) Creatinine 1.33 MG/DL (0.50-1.00) Estimat Glomerular Filtration 38 ML/MIN (>89) 53 ML/MIN (>89) Rate Random Glucose 175 MG/DL (74-106) Magnesium Level 1.4 MG/DL (1.5-2.5) Troponin I LESS THAN 0.02 NG/ML (0.02-0.05) Albumin 3.0 GM/DL 3.0 GM/DL (3.4-5.0) (3.4-5.0) Lactic Acid Level 2.2 mmol/L (0.4-2.0) Urine Protein 30 mg/dL (NEG-TRACE) Test 12/03/16 05:27 Platelet Count 139 TH/MM3 (150-450) Neutrophils (%) (Auto) 74.5 % (16.0-70.0) Monocytes (%) (Auto) 11.3 % (0.0-8.0) Monocytes # (Auto) 1.1 TH/MM3 (0-0.9) Imaging Last 72 hours Impressions Chest X-Ray 12/01/162104 Signed Impressions: Service Date/Time: Thursday, December 01, 2016 21:17 - CONCLUSION: 1. Significant increase in the size of left mid lung mass when compared to 2013, now measuring 2.7 cm. This is suspicious for malignancy. 2. Linear atelectasis or infiltrate at the left lung base. Baljit Miller MD CT Angiography 12/01/16 0000 Signed Impressions: Service Date/Time: Thursday, December 01, 2016 23:23 - CONCLUSION: 1. Large Central mass in the left mediastinum encasing portions of the left main pulmonary artery and left mainstem bronchus without significant obstruction. Bronchoscopy recommended. 2. Small mass in the left lower lobe measuring 3.7 x 3.2 cm. This is amenable to percutaneous CT-guided biopsy if bronchoscopy is not performed. 3. No evidence for pulmonary embolism. 4. Coronary artery calcifications. 5. Scattered parenchymal scarring. Rinku Arenas MD Abdomen X-Ray 12/01/16 0000 Signed Impressions: Service Date/Time: Thursday, December 01, 2016 21:19 - CONCLUSION: No dilated loops of small or large bowel. Baljit Miller MD PE at Discharge GENERAL: Alert and cooperative SKIN: Warm and dry. HEAD: Normocephalic. EYES: No scleral icterus. No injection or drainage. NECK: Supple, trachea midline. No JVD or lymphadenopathy. CARDIOVASCULAR: Regular rate and rhythm without murmurs, gallops, or rubs. RESPIRATORY: Breath sounds equal bilaterally. No accessory muscle use. 0 2 2 liters GASTROINTESTINAL: Abdomen soft, non-tender, nondistended. MUSCULOSKELETAL: No cyanosis, or edema. BACK: Nontender without obvious deformity. No CVA tenderness. Hospital Course Patient is a very pleasant 86 year old female who is a half-way smoker who she still smokes 2-4 cigarettes daily. Although her does not know this she has been aware of the presence of a pulmonary mass for the past 2 years but has refused any work up. She presented to ED with sob and hypoxia with CT showing two masses to be present. Patient was pulmonary and oncology during her hospital course. The family initially was going to obtain a lung biopsy but have now changed their minds. After given the options per oncology they have decided to precede with hospice and comfort care only. They wish to be discharged today to home under the care of hospice. Orders written. Pt Condition on Discharge: Deteriorating Discharge Disposition: Hospice/ Home Discharge Instructions DIET: Follow Instructions for: As Tolerated, No Restrictions Activities you can perform: Regular-No Restrictions New Medications: Trazodone (Trazodone) 100 Mg Tablet 100 MG PO HS PRN INSOMNIA #30 Ref 0 TAB Continued Medications: Carvedilol (Carvedilol) 12.5 Mg Tab 12.5 MG PO DAILY #60 Ref 0 TAB Enalapril (Enalapril) 2.5 Mg Tab 5 MG PO BID #60 Ref 0 TAB Pantoprazole (Pantoprazole) 40 Mg Tab 40 MG PO BID Reflux #30 Ref 0 TAB Discontinued Medications: Atorvastatin (Lipitor) 10 Mg Tab 80 MG PO HS Cholesterol Management #30 Ref 0 TAB Furosemide (Furosemide) 20 Mg Tab 20 MG PO DAILY #30 Ref 0 TAB Gabapentin (Gabapentin) 300 Mg Cap 300 MG PO TID #60 Ref 0 CAP Dafne SalcedoP Dec 03, 2016 08:58
[2016-12-03] MEDS ORDERED: ENALAPRIL MALEATE 5 MG TAB PO SCH (09:00)
[2016-12-03] MEDS: DOCUSATE SODIUM 50 MG/SENNA 8.6 MG TAB PO SCH (09:00)
[2016-12-03] MEDS: CARVEDILOL 6.25 MG TAB PO SCH (09:11)
[2016-12-03] MEDS: SODIUM CHLORIDE 0.9% FLUSH 10 ML FLUSH IV FLUSH SCH (09:11)
--- NOTE | 2016-12-03 09:16 | PD.ONC.PN ---
Subjective Subjective Remarks Afebrile overnight. Has discussed with her family she does not want any diagnostic testing done Will go home with Hospice later today Objective Data Date Time Temp Pulse Resp B/P Pulse Ox O2 Delivery O2 Flow Rate FiO2 12/03/16 08:48 96 Nasal Cannula 2.00 12/03/16 08:00 96.7 83 16 178/74 96 12/03/16 05:37 96.8 75 21 171/73 95 12/03/16 00:00 96.5 82 19 140/71 93 12/02/16 20:17 87 12/02/16 20:00 96.8 88 20 166/83 96 12/02/16 16:00 97.7 82 16 186/86 94 12/02/16 15:33 97 Nasal Cannula 2.00 12/02/16 12:00 97.3 95 17 166/75 94 12/03/16 12/03/16 12/03/16 07:00 15:00 23:00 Intake Total 240 ml Balance 240 ml Result Diagram: 12/03/16 0527 12/03/16 0523 Laboratory Results Laboratory Tests Test 12/02/16 12/03/16 12/03/16 16:02 05:23 05:27 White Blood Count 7.8 TH/MM3 9.7 TH/MM3 Red Blood Count 4.35 MIL/MM3 4.17 MIL/MM3 Hemoglobin 13.7 GM/DL 13.0 GM/DL Hematocrit 40.9 % 39.4 % Mean Corpuscular Volume 94.1 FL 94.5 FL Mean Corpuscular Hemoglobin 31.4 PG 31.2 PG Mean Corpuscular Hemoglobin 33.4 % 33.0 % Concent Red Cell Distribution Width 13.7 % 13.6 % Platelet Count 145 TH/MM3 139 TH/MM3 Mean Platelet Volume 10.3 FL 10.6 FL Neutrophils (%) (Auto) 76.1 % 74.5 % Lymphocytes (%) (Auto) 12.8 % 13.1 % Monocytes (%) (Auto) 10.7 % 11.3 % Eosinophils (%) (Auto) 0.1 % 0.8 % Basophils (%) (Auto) 0.3 % 0.3 % Neutrophils # (Auto) 5.9 TH/MM3 7.2 TH/MM3 Lymphocytes # (Auto) 1.0 TH/MM3 1.3 TH/MM3 Monocytes # (Auto) 0.8 TH/MM3 1.1 TH/MM3 Eosinophils # (Auto) 0.0 TH/MM3 0.1 TH/MM3 Basophils # (Auto) 0.0 TH/MM3 0.0 TH/MM3 CBC Comment DIFF FINAL DIFF FINAL Differential Comment Prothrombin Time 11.2 SEC Prothromb Time International 1.0 RATIO Ratio Activated Partial 29.4 SEC Thromboplast Time Sodium Level 135 MEQ/L Potassium Level 3.6 MEQ/L Chloride Level 101 MEQ/L Carbon Dioxide Level 25.5 MEQ/L Anion Gap 9 MEQ/L Blood Urea Nitrogen 13 MG/DL Creatinine 0.99 MG/DL Estimat Glomerular Filtration 53 ML/MIN Rate Random Glucose 104 MG/DL Calcium Level 9.5 MG/DL Total Bilirubin 0.4 MG/DL Aspartate Amino Transf 27 U/L (AST/SGOT) Alanine Aminotransferase 17 U/L (ALT/SGPT) Alkaline Phosphatase 62 U/L Total Protein 6.5 GM/DL Albumin 3.0 GM/DL Culture Results Microbiology Date/Time Procedure Status Source Growth 12/01/16 21:26 Aerobic Blood Culture - Preliminary Resulted Blood Peripheral NO GROWTH IN 1 DAY 12/01/16 21:26 Anaerobic Blood Culture - Preliminary Resulted Blood Peripheral NO GROWTH IN 1 DAY 12/01/16 21:35 Aerobic Blood Culture - Preliminary Resulted Blood Peripheral NO GROWTH IN 1 DAY 12/01/16 21:35 Anaerobic Blood Culture - Preliminary Resulted Blood Peripheral NO GROWTH IN 1 DAY Administered Medications Medications (Trade) Dose Ordered Sig/Eduar Route PRN Reason Start Time Stop Time Status Last Admin Dose Admin Sodium Chloride (NS Flush) 2 ml BID IV FLUSH 12/02/16 09:00 12/02/16 21:07 Zolpidem Tartrate (Ambien) 5 mg HS PRN PO INSOMNIA 12/02/16 00:45 12/02/16 22:09 Senna/Docusate Sodium (Rebekah-Colace) 1 tab BID PO 12/02/16 09:00 12/02/16 09:00 Magnesium Hydroxide (Milk Of Magnesia Liq) 30 ml Q12H PRN PO MILD - MODERATE CONSTIPATION 12/02/16 00:45 12/02/16 09:19 Lactulose (Lactulose Liq) 30 ml DAILY PRN PO SEVERE CONSITIPATION 12/02/16 00:45 12/02/16 16:18 Carvedilol (Coreg) 6.25 mg Q12HR PO 12/02/16 21:00 12/02/16 21:06 Enalaprilat (Vasotec Inj) 1.5 mg Q6H PRN IV PUSH SYSTOLIC BP GREATER THAN 150 12/02/16 16:00 12/03/16 06:34 Objective Remarks GENERAL: Elderly female, sitting up in bed in no acute distress. SKIN: Warm and dry. HEAD: Normocephalic. EYES: No scleral icterus. CARDIOVASCULAR: +S1/S2. RESPIRATORY: Bilateral exp wheezes. On 2L NC. GASTROINTESTINAL: Abdomen soft, non-tender, nondistended. EXTREMITIES: No cyanosis, or edema. NEUROLOGICAL: Normal speech. Moving all extremities. Assessment/Plan Assessment 86 y/o female admitted for SOB found to have a lung mass Plan 1. The pt has been very well informed of her options for testing and possible treatment. She has discussed with her family and has decided to go home with hospice. 2. She does not wish to proceed with diagnostic testing. We will cancel the CT guided biopsy. 3. Hospice will see her later today and she will likely be discharged home. 4. We will be available for questions as needed. Attending Statement The exam, history, and the medical decision-making described in the above note were completed with the assistance of the mid-level provider. I reviewed and agree with the findings presented. I attest that I had a [id number] encounter with the patient on the same day, and personally performed and documented my assessment and findings in the medical record. remains mildly sob and with mild wheezing. She does not want to undergo any treatment, nor does she desire to undergo a needle bx of lung lesion. She wants to return home today with supportive care and live the remainder of her life at her daughter's home. Hospice consulted and needle bx of lung will not be done. Faith Arevalo Dec 03, 2016 09:16 Jerald Sanchez MD Dec 03, 2016 23:56
[2016-12-03 12:00] VITALS: BP 173/99; PULSE 76; RESP 17; TEMP 96.1; O2SAT 93
== END 2016-12-03 14:22 | disposition hospice, home (50) | DRG 191 ==
LOC: NEPE 20:45 → NEDA 12-02 00:44 → N07B 12-02 01:38
PROVIDERS: ADMIT Family Medicine; ATTEND Family Medicine
DX: J44.1 Chronic obstructive pulmonary disease with (acute) exacerbation (principal); R91.8 Other nonspecific abnormal finding of lung field; J98.11 Atelectasis; I11.0 Hypertensive heart disease with heart failure; R63.0 Anorexia; I50.9 Heart failure, unspecified; R09.02 Hypoxemia; R11.10 Vomiting, unspecified; Z87.442 Personal history of urinary calculi; F17.210 Nicotine dependence, cigarettes, uncomplicated; E04.1 Nontoxic single thyroid nodule; Z80.3 Family history of malignant neoplasm of breast; Z80.8 Family history of malignant neoplasm of other organs or systems; R13.10 Dysphagia, unspecified; R63.4 Abnormal weight loss; Z86.73 Personal history of transient ischemic attack (TIA), and cerebral infarction without residual deficits; I73.9 Peripheral vascular disease, unspecified; R59.0 Localized enlarged lymph nodes; Z53.29 Procedure and treatment not carried out because of patient's decision for other reasons; E78.00 Pure hypercholesterolemia, unspecified; Z51.5 Encounter for palliative care
CPT/HCPCS: 71010; 71275; 74020; 80053; 81001; 82550; 83605; 83735; 83880; 84484; 85025; 85610; 85730; 87015; 87040; 93005; 94640; 94664; 96374; 96375; J1956; J2930; J7040; P9612; Q9967